=== PATIENT | female | born 1985 | race Caucasian/White ===

== ENCOUNTER 2018-07-15 08:54 | Emergency (ER) | payer OTHER ==
[~2018-07-15] VITALS: Ht 165.1 cm; Wt 64.2 kg
[2018-07-15 09:02] VITALS: BP 113/77
[2018-07-15 09:56] LABS: MICROSCOPIC AUTO
[2018-07-15 10:02] LABS: CULTURE INDICATED? YES
[2018-07-15] MEDS ORDERED: AZITHROMYCIN 250 MG TABLET PO STA (10:39)
[2018-07-15] MEDS ORDERED: CEFTRIAXONE 250 MG ONE (10:45)
[2018-07-15] MEDS ORDERED: LIDOCAINE-MPF 1%, 2ML ONE (10:45)
[2018-07-15] MEDS ORDERED: AZITHROMYCIN 500 MG TABLET ONE (10:45)
[2018-07-15] MEDS ORDERED: CEFTRIAXONE 250 MG IM ONE (11:00)
[2018-07-15 11:23] LABS: CLUE CELLS PRESENT (NONE SEEN); WET PREP WBCS FEW (FEW)
== END 2018-07-15 11:44 | disposition home or self-care (01) ==
LOC: ED 10:26
DX: N76.0 Acute vaginitis (principal); B96.89 Other specified bacterial agents as the cause of diseases classified elsewhere
CPT/HCPCS: 36415; 81001; 84703; 87086; 87210; 87491; 87591; 87808; 96372; 99283; J0696